=== PATIENT | female | born 1980 | race Caucasian/White ===

== ENCOUNTER 2023-07-30 09:13 | Outpatient (OUT) | payer MEDICAID, SELFPAY ==
--- NOTE | 2023-07-30 | XR_ITS ---
The [address] [address] Patient Name: CORI HERNANDES MRN: [id number] date: 1980 Sex: F Assigned Patient Location: Current Patient Location: Accession/Order Number: [id number] Exam Date: 07/30/2023 09:25 Report Date: 07/30/2023 11:58 At the request of: CRYS NIX Procedure: XR foot BRUNO min 3V EXAMINATION: XR foot BRUNO min 3V HISTORY: BILATERAL HEEL PAIN COMPARISON: No relevant comparison available. FINDINGS: RIGHT FINDINGS: BONES: No acute fracture or dislocation. Mild plantar enthesopathic spurring of the calcaneus SOFT TISSUES: Negative. No visible soft tissue swelling. OTHER: Negative. LEFT FINDINGS: BONES: No acute fracture or dislocation. Mild plantar enthesopathic spurring of the calcaneus SOFT TISSUES: Negative. No visible soft tissue swelling. OTHER: Negative. XR/XR foot BRUNO min 3V IMPRESSION: RIGHT CONCLUSION: Mild plantar calcaneal enthesopathic spurring LEFT CONCLUSION: Mild plantar calcaneal enthesopathic spurring Electronically authenticated by: ROSHNI CAR Date: 07/30/2023 11:58
== END 2023-07-30 09:14 | disposition home or self-care (01) ==
PROVIDERS: Visit Provider Podiatrist Foot & Ankle Surgery
DX: M79.672 Pain in left foot (principal); M79.671 Pain in right foot
CPT/HCPCS: 73630